=== PATIENT | male | born 1995 | race Two or more races ===

== ENCOUNTER 2017-07-24 00:20 | Emergency (ER) | payer OTHER ==
[~2017-07-24] VITALS: Ht 170.2 cm; Wt 66.0 kg
[2017-07-24] MEDS ORDERED: SELE1SH TOP (00:33)
[2017-07-24] MEDS ORDERED: CLIN150C14 PO (00:33)
[2017-07-24] MEDS ORDERED: FLUC150T PO (00:33)
[2017-07-24] MEDS ORDERED: NYST1POW9 TOP (03:59)
[2017-07-24] MEDS ORDERED: NYSTATIN 100,000 UNITS/GM TOPICAL PWD 15 GM TOP ONE (04:00)
[2017-07-24 04:27] VITALS: BP 139/79
== END 2017-07-24 04:31 | disposition home or self-care (01) ==
LOC: M ED 00:20
DX: L08.9 Local infection of the skin and subcutaneous tissue, unspecified (principal); Z79.2 Long term (current) use of antibiotics; Z79.899 Other long term (current) drug therapy

== ENCOUNTER → 2019-08-28 | Outpatient (CLI) | payer OTHER ==
[~2019-08-28] MED LIST: CLIN150C14 PO; FLUC150T PO; NYST1POW9 TOP; SELE1SH TOP
--- NOTE | 2019-08-28 09:00 | REP ---
CT left knee without contrast: History: Sprain anterior cruciate ligament left knee. Evaluate for preoperative planning, ACL repair. No comparison imaging available. Findings: The patient is status post prior anterior cruciate ligament repair. There appears to be calcification or ossification over a portion of the intraosseous tunnel in the distal femur, and there is a segment of calcification or ossification in the proximal tibial tunnel. The proximal tibial tunnel shows wide radiolucent enlargement. This measures 15 mm in anteroposterior dimension by 17 mm right to left. Within the expanded radiolucent tunnel, there is a calcific or ossific plug 19 mm in length which is apparently a sequestrum. It is completely surrounded by radiolucency. There may be an older ossific tunnel just caudal to this. On sagittal reformatted scans, the tibia is aligned somewhat anterior with respect to the femur, question ACL graft disruption. There is mild tibiofemoral osteoarthritic spurring. There is a small subcortical radiolucency in the medial femoral condyle with slight convexity to the articular cortex overlying it. This suggests chondromalacia. There is a focal indentation of the articular cortex of the lateral femoral condyle as well. There is fragmented spurring at the posterior aspect of the lateral tibial plateau. There is a well corticated 5.5 mm loose body at the posterior joint line medially. There is minimal lateral patellar spurring. Impression: 1. Significant tibial tunnel widening suggestive of tibial tunnel cyst or ganglion. There is a 19 mm apparent calcific or ossific sequestrum within the tibial tunnel. There is some anterior alignment of the tibia relative to the femur suggesting disruption of the graft. 2. Osteoarthritic changes and chondromalacia changes. 3. At least one osteocartilaginous loose body. Fragmented spurring at the posterior aspect of the tibia versus additional loose bodies. Electronically Signed by Reece Nuñez MD 08/28/2019 09:28 A
== END ==
LOC: M RAD 08:05
PROVIDERS: ATTEND Orthopaedic Surgery
DX: M25.762 Osteophyte, left knee (principal); M94.262 Chondromalacia, left knee; M17.12 Unilateral primary osteoarthritis, left knee; S83.512D Sprain of anterior cruciate ligament of left knee, subsequent encounter

== ENCOUNTER 2019-11-12 05:35 | Day surgery (SDC) | payer OTHER ==
[~2019-11-12] VITALS: Ht 170.2 cm; Wt 81.2 kg
[2019-11-12] MEDS ORDERED: LIDOCAINE 1% MDV 20ML VIAL SQ PRN (06:00)
[2019-11-12] MEDS ORDERED: ceFAZolin SOD 2 GM in IV 1 EA IV ONE (07:00)
[2019-11-12] MEDS ORDERED: LR 1,000 ML IV ONE (07:00)
[2019-11-12] MEDS ORDERED: dexameTHASONE 4 MG/ML 1ML VIAL (J1100) As Ordered ONE (07:12)
[2019-11-12] MEDS ORDERED: fentaNYL 100 MCG/2 ML INJECTION (J3010) As Ordered ONE ×3 (07:12→10:31)
[2019-11-12] MEDS ORDERED: LIDOCAINE 2% INJ 100 MG/5 ML SDV (FOR ANES.) As Ordered ONE (07:12)
[2019-11-12] MEDS ORDERED: ONDANSETRON 4MG/2ML VIAL (J2405) As Ordered ONE (07:12)
[2019-11-12] MEDS ORDERED: propofoL 200 MG/20 ML VIAL As Ordered ONE (07:12)
[2019-11-12] MEDS ORDERED: MIDAZOLAM INJ 2 MG/2 ML VIAL (J2250) As Ordered ONE (07:13)
[2019-11-12] MEDS ORDERED: BUPIVACAINE HCL 0.5% 30 ML VIAL As Ordered ONE (07:14)
[2019-11-12] MEDS ORDERED: ACETAMINOPHEN 1000MG 100ML IV BTL (OFIRMEV) (J0131 PER 10MG) As Ordered ONE (08:07)
[2019-11-12] MEDS ORDERED: KETAMINE HCL 200 MG/20 ML VIAL As Ordered ONE (08:07)
[2019-11-12] MEDS ORDERED: KETOROLAC 60 MG/2 ML VIAL (J1885) As Ordered ONE (10:25)
[2019-11-12] MEDS ORDERED: ONDANSETRON 4MG/2ML VIAL (J2405) IV PRN (11:00)
[2019-11-12] MEDS ORDERED: fentaNYL 100 MCG/2 ML INJECTION (J3010) IV PRN (11:00)
[2019-11-12] MEDS ORDERED: LR 1,000 ML IV SCH ×2 (11:00→11:30)
[2019-11-12] MEDS ORDERED: oxyCODONE 5MG TAB PO PRN (11:00)
[2019-11-12 13:30] VITALS: BP 147/73
--- NOTE | 2019-11-13 14:30 | RO ---
DATE OF SURGERY: 11/12/2019 PREOPERATIVE DIAGNOSES: 1. Left knee failed anterior cruciate ligament (ACL) reconstruction times two. 2. Left knee medial meniscus tear. 3. Left knee medial femoral condyle OCD. 4. 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 POSTOPERATIVE DIAGNOSES: 1. Left knee failed anterior cruciate ligament (ACL) reconstruction times two. 2. Left knee medial and lateral meniscus tear. 3. 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 4. 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 PROCEDURE: 1. Left knee arthroscopic osteochondral autograft transfer from lateral femoral condyle to medial femoral condyle. 2. Left knee arthroscopic medial meniscus repair. 3. Left knee arthroscopic chondroplasty and partial lateral meniscectomy. 4. Left knee open tibial tunnel debridement, curettage of hardware and soft tissue and bone with bone grafting using allograft. SURGEON: Dr. Jeromy Moreno ESTHETICIAN: FRED Rudolph ANESTHESIA: General. INTRAVENOUS (IV) FLUIDS: Lactated Ringer's. ESTIMATE BLOOD LOSS: 25 mL. IMPLANTS: Hu [employer]hew Fast-Fix reverse curved 360 times three. Arthrex AlloSync Pure 5 mL allograft putty. CLOSURE: Nylon. PROCEDURE: Patient was identified in preoperative holding area. The left leg was marked by myself. He was brought to the operating room, placed supine on a well-padded operating room (OR) table. General anesthesia induced. He received appropriate IV antibiotics within 1 hour of incision. Exam under anesthesia revealed range of motion from 0-140 degrees, mild laxity to valgus stress to 30 degrees, stable at 0. Grade 2B Janis, positive pivot shift. A well-padded tourniquet was applied to the left thigh. Beanbag taped to the bottom of the bed. Left leg was then prepped and draped in a normal sterile fashion, Chloraprep from the toes up to the tourniquet. Prior to incision, time-out was performed per hospital protocol. Madiha Garner was present for the entire procedure and participated in all essential portions of the procedure. She was present for the prepping and draping. She was crucial for holding the arthroscope during the autograft OATS harvest and transplant. She is also crucial for the medial meniscus repair were she was deploying the Fast-Fix 360 device and holding the arthroscope for that portion of the case. She also held retractors and assisted with curettage and bone graft placement and then the wound closure. The left leg was exsanguinated with an Esmarch bandage and tourniquet inflated to 275 mmHg. The knee was insufflated with lactated Ringer's. Standard anterolateral portal was made with 11 blade, 30-degrees arthroscope was introduced into the joint. Patella and trochlea had grade 1 chondromalacia. No loose bodies in the gutters. The medial compartment was entered, where there was a stage III osteochondral lesion in the central weightbearing portion of the medial femoral condyle. The rest of the medial femoral condyle had grade 1 chondromalacia. Medial meniscus appeared to have a tear in the posterior horn. The ACL, from prior reconstruction, had re-torn with a positive empty notch sign. The leg was brought to the figure of four position, where there was free edge tearing of the lateral meniscus in the body. There was grade 2 chondromalacia in the far lateral portion of lateral femoral condyle. An anteromedial portal was created under direct visualization with a spinal needle used to localize the correct angle for medial meniscus repair and a separate portal being required for the OATS. On probing the medial meniscus, the posterior horn, there was an unstable tear in the peripheral zone. The root was stable. Chondroplasty was then performed to the medial femoral condyle, and then calibrated probe used to determine the dimensions, and then the Arthrex OATS kit used to size this lesion, and it was sized to an 8 mm plug. The leg was brought to the figure of four position where a partial lateral meniscectomy was performed just with the shaver. I removed less than 5% of the lateral meniscus. This was trimmed to stable rim. The remainder of the lateral meniscus was stable on probing. Chondroplasty was performed with the shaver to the lateral femoral condyle. The knee was then brought through range of motion, and appropriate place for an autograft plug was determined just proximal to the sulcus terminalis of the lateral femoral condyle. An 8-mm donor harvester was used to harvest a 15 mm plug. Next, the recipient site trocars were used to remove a 13 mm plug. The harvested plug from the lateral femoral condyle was then placed on the delivery device and then it was inserted into the medial femoral condyle and tamped down with appropriate tamps. This was flush for about 270 degrees and proud about 0.5 mm. It was brought through range of motion. There is no catching. This had excellent fill. I then proceeded the medial meniscus repair. Hu [employer] Nephew Fast-Fix 360 devices, a total of three were used to pass the sutures, primarily in a vertical mattress fashion. The middle of the three was placed in an oblique fashion. Each of these devices had excellent fixation and was well tensioned and then cut with the appropriate cutter, and there was no failure of the devices. On probing of the medial meniscus, the repair was now stable. It was brought through range of motion, 0-120 degrees. There is no re-tearing. Then proceeded with the tibial tunnel curettage. The prior tibial incision was opened with a 15-blade and cautery used to dissect down to the anterior-medial border of the tibia. Once some suture was identified, the tunnel was opened and further developed with a Ashfield elevator. I then used a series a curettes, rongeur, and pituitary rongeur to remove all soft tissue from the tunnel. There was some cloudy fluid in the tunnel which is likely breakdown of a prior BioComposite screw; however, out of abundance caution, I sent off aerobic and anaerobic cultures of that tissue. Curettes were used to clear all soft tissue and then wherever the bone was sclerotic, curettes used to break through that to create a raw metaphysis bleeding surface. A K-wire was then malleted through the tunnel into the joint under direct visualization with the arthroscope. At this point, I had about a 2-3 mm soft tissue cap at the aperture of the tibial tunnel at the joint surface to help contain the bone graft. Anesthesia then sterilely devin 10 mL of blood from peripheral stick and that was placed into a cup on the OR table in a sterile fashion. 5 mL of Arthrex AlloSync Pure was then opened, the putty version, that was mixed with approximately 3 mL of blood on the back table. It was placed into the syringe, and the tunnel was then irrigated and dried. Bone graft was then packed into the tunnel using the delivery device and Ashfield elevator. Next, flaps of periosteum were closed over the tibial tunnel distally to help contain the bone graft, then we irrigated and then closed the incisions with #2-0 Vicryl and a running nylon. Portals closed with nylon. We injected 30 mL 0.5% Marcaine without epinephrine. Tourniquet had been let down with excellent reperfusion. Bulky sterile dressing applied. Patient was placed into a hinged knee brace, locked in extension, extubated, transferred the post anesthesia care unit (PACU) in stable condition.
== END 2019-11-12 13:49 | disposition home or self-care (01) ==
LOC: M SDC 05:35
PROVIDERS: ATTEND Orthopaedic Surgery
DX: M25.362 Other instability, left knee (principal); T84.410A Breakdown (mechanical) of muscle and tendon graft, initial encounter; S83.242A Other tear of medial meniscus, current injury, left knee, initial encounter; S83.282A Other tear of lateral meniscus, current injury, left knee, initial encounter; M93.262 Osteochondritis dissecans, left knee
CPT/HCPCS: 27638; 29868; 29882; 87070; 87075; 87205; C1762; J0131; J0690; J1100; J1885; J2250; J2405; J3010

== ENCOUNTER → 2020-02-26 | Outpatient (CLI) | payer OTHER ==
[~2020-02-26] MED LIST changes: +OXYC1TAB23 PO
== END ==
LOC: M LABSMTC 11:17
PROVIDERS: ATTEND Anesthesiology
DX: Z01.818 Encounter for other preprocedural examination (principal); Z11.59 Encounter for screening for other viral diseases
CPT/HCPCS: C9803; U0003

== ENCOUNTER 2020-02-29 07:11 | Day surgery (SDC) | payer OTHER ==
[~2020-02-29] VITALS: Ht 170.2 cm; Wt 81.2 kg
[~2020-02-29 07:11] MED LIST changes: +BUPIVACAINE HCL 0.5% 10ML VIAL As Ordered ONE; +LR 1,000 ML IV ONE; +MIDAZOLAM INJ 2MG/2ML VIAL (J2250 PER 1MG) As Ordered ONE; -OXYC1TAB23 PO; +fentaNYL 100 MCG/2 ML INJECTION (J3010) As Ordered ONE
[2020-02-29] MEDS ORDERED: propofoL 200 MG/20 ML VIAL As Ordered ONE (07:19)
[2020-02-29] MEDS ORDERED: dexameTHASONE 4 MG/ML 1ML VIAL (J1100 PER 1MG) As Ordered ONE (07:20)
[2020-02-29] MEDS ORDERED: LIDOCAINE 2% 100MG/5ML SDV (FOR ANES.) As Ordered ONE ×3 (07:20→11:11)
[2020-02-29] MEDS ORDERED: ONDANSETRON 4MG/2ML VIAL As Ordered ONE (07:20)
[2020-02-29] MEDS ORDERED: fentaNYL 100 MCG/2 ML INJECTION (J3010) As Ordered ONE ×2 (07:20→12:02)
[2020-02-29] MEDS ORDERED: MIDAZOLAM INJ 2MG/2ML VIAL (J2250 PER 1MG) As Ordered ONE ×2 (07:35→12:04)
[2020-02-29] MEDS ORDERED: ceFAZolin 2 GM/D5W 50 ML IV BAG (J0690 PER 500MG) As Ordered ONE (07:44)
[2020-02-29] MEDS ORDERED: ROCURONIUM BROMIDE 50 MG/5 ML VIAL As Ordered ONE ×2 (07:55→10:27)
[2020-02-29] MEDS ORDERED: ceFAZolin SOD 2 GM in IV 1 EA IV ONE (08:00)
[2020-02-29] MEDS ORDERED: SUGAMMADEX SODIUM 500 MG/5 ML VIAL (BRIDION) As Ordered ONE (09:50)
[2020-02-29] MEDS ORDERED: KETOROLAC 60 MG/2 ML VIAL As Ordered ONE (09:50)
[2020-02-29] MEDS ORDERED: ceFAZolin 1GM VIAL (J0690 PER 500MG) As Ordered ONE (11:52)
[2020-02-29] MEDS ORDERED: HYDROMORPHONE HCL 0.5 MG/ 0.5 ML SYRINGE (J1170 PER 1) IV PRN (12:45)
[2020-02-29] MEDS ORDERED: oxyCODONE 5MG TAB PO PRN (12:45)
[2020-02-29] MEDS ORDERED: fentaNYL 100 MCG/2 ML INJECTION (J3010) IV PRN (12:45)
[2020-02-29] MEDS ORDERED: LR 1,000 ML IV SCH ×2 (12:45)
[2020-02-29] MEDS ORDERED: ONDANSETRON 4MG/2ML VIAL IV PRN (12:45)
[2020-02-29] MEDS ORDERED: PHENYLephrine HCL 500 MCG/5 ML (100MCG/ML) SYRINGE (J2370) As Ordered ONE (13:27)
[2020-02-29] MEDS ORDERED: MIDAZOLAM INJ 2MG/2ML VIAL (J2250 PER 1MG) IV ONE (13:30)
[2020-02-29 16:00] VITALS: BP 135/71
--- NOTE | 2020-03-04 16:29 | RO ---
DATE OF PROCEDURE: 02/29/2020 PREOPERATIVE DIAGNOSES: 1. Recurrent anterior cruciate ligament tear. 2. Status post medial meniscus repair. 3. Left knee tibial tunnel osteolysis. 4. Left knee chondromalacia. POSTOPERATIVE DIAGNOSES: 1. Left knee recurrent anterior cruciate ligament (ACL) tear. 2. Left knee healed medial meniscus repair. 3. Left knee healed osteochondral autograft transfer system (OATS). 4. Left knee chondromalacia. 5. Left knee tibial tunnel osteolysis. PROCEDURE: 1. Left knee arthroscopic assisted xoun-sucnil-blif autograft anterior cruciate ligament reconstruction (revision). 2. Left knee arthroscopic chondroplasty. 3. Left knee tibial tunnel bone grafting with allograft dowel. SURGEON: Jeromy Moreno MD LINUX SERVER ADMINISTRATOR: FRED Nelson ANESTHESIA: General with postoperative nerve block. IV FLUIDS: Lactated Ringer's. ESTIMATED BLOOD LOSS: 50 mL. IMPLANTS: Arthrex 8 x 23 mm PEEK interference screw in the femur, Arthrex 9 x 28 mm PEEK interference screw in the tibia, LifeNet 12 x 29 mm allograft bone dowel in the tibia. CLOSURE: Nylon. Will be requesting a modifier 22 for this procedure. Due to the complex nature of this case, including the fact that it was his fourth knee surgery and this was his third anterior cruciate ligament reconstruction, the procedure took twice as long as normal. This case was further complicated by having converging bone tunnels in the tibia with extensive osteolysis and having a failed bone grafting of the tibial tunnel requiring additional fixation and allograft in order to perform a successful ACL reconstruction. This also required a very skilled assistant art director. Tono assisted with preparing the graft, holding retractors, hyperflexing the knee, assisting with graft passage into the bone tunnels, providing flexion to the knee and performed the wound closure, applied the dressing and brace. The patient was brought to the operating room, placed supine on a well-padded operating room (OR) table. The left leg had been marked. General anesthesia was induced. Exam under anesthesia revealed range of motion from 0 to 135 degrees. Grade 1 laxity to valgus stress at 30 degrees, otherwise stable. Negative posterior drawer. A well-padded tourniquet applied to the left thigh. The left leg was then prepped and draped in the normal sterile fashion from the toes up to the tourniquet. Prior to incision, a time-out was performed per hospital protocol. The left leg was exsanguinated with an Esmarch bandage, the tourniquet inflated to 275 mmHg. The knee was insufflated with lactated Ringer's. Standard anterolateral portal made with #11-blade. 30-degrees arthroscope introduced into the joint. The patient had grade 1 to 2 chondromalacia in the patella, grade 2 in the distal the central trochlea, this blended with some scar tissue at the notch. Medial compartment was entered, the autograft OATS recipient site was inspected and appeared completely healed with no step-off. This looked fantastic. The donor site was filling in nicely with scar tissue. Lateral femoral condyle had grade 2/borderline grade 3 chondromalacia that was unchanged from the prior knee surgery. Some residual ACL tissue was still attached to the femur, so with the medial portal, used the radiofrequency cautery to clear all prior ACL graft and scar tissue. I performed a notchplasty with the bur. We then proceeded with qmdt-mofzgi-efmi graft harvest, midline incision with a #15 blade. Peritenon carefully incised. I then harvested the central one-third of the patellar tendon was bone blocks from the patella and tibia. A thicker bone block than typical was harvested from the tibia and that was to be placed back into the tibial tunnel due to the osteolysis. Graft was prepared on the back table. Two drill holes placed in each bone block, #2 FiberWire passed through each. Patellar tendon was then closed, the knee in 30 degrees of flexion, using buried figure-of-8 #0 Vicryl sutures. Arthroscope was placed into the joint through the lateral portal and then a curette used to jayda the anatomic location for the single bundle ACL reconstruction. 8 mm iock-vzv-yir guide was placed through the anteromedial portal. The knee was hyperflexed, the Beath pin was advanced out the lateral femoral condyle. 10 mm low profile acorn reamer was then used to drill a 25 mm tunnel. This was in an excellent location, 2 mm of posterior wall and just off the articular surface. Shaver was used to remove bony debris from the tunnel. A PDS passing suture was placed through the Beath pin and protected for later passage. The prior tibial incision was then opened and extensive scar tissue had to be removed. The widened tunnel was identified and curettes were used to clear out all of the bone graft, which was Arthrex AlloSync putty, so that was all removed and then curettes were used to scrape out any sclerotic bone. The tibial tunnel from the prior surgeries was 16 mm in diameter on CT scan and it was extremely anterior. During the whole tibial portion of the procedure, there was a risk for tibial fracture, which added significant complexity to the case. I elected to drill a new tibial tunnel. The drill guide was used, and the guidewire entered the joint just medial to the midline and about 9 mm posterior to the intrameniscal ligament. First an 8, then a 10 mm barrel scraper were used to create the tibial tunnel. Passing suture was brought out the tibial tunnel. The graft was then passed into the joint, bone block was docked into the femoral tunnel. There was no notch impingement. Nitinol wire was placed. I then used a 7 mm tap and a 7 x 23 mm screw was placed over the guidewire. The screw bottomed out fpc, and the wire and screw were removed and the guidewire had bent. So, the steps were repeated. Ultimately the 7 mm screw had poor bite, so I then used an 8 x 23 mm PEEK screw in the femur and got excellent fixation. The tourniquet was let down with excellent reperfusion. All incisions irrigated. It was now clear that my a new tibial tunnel converged with the old osteolytic tunnel, and there be very poor fixation. I was prepared for this, so the 12 mm LifeNet bone dowel was opened, it was slightly trimmed down with a rongeur, and this was impacted into the osteolytic tibial tunnel with excellent fill and fixation. Next, the Nitinol wire was passed and a 7 mm tap was used. I then placed a 9 x 28 mm PEEK interference screw, placing the screw posterior to the bone block. There was no graft tunnel mismatch. That screw had amazing fixation. I was applying distal traction to the sutures and my assistant art director was applying a posterior drawer to the tibial tubercle. The patient now had a grade 1A Janis. The knee was ranged from 0 to 120 degrees, the Janis was repeated; there was no loosening. Initially I had planned to provide back up tibial fixation; however, with the bone dowel and the 9 mm screw and using autograft, the fixation was so secure, I elected to hold off on backup fixation. The arthroscope was placed into the joint, and the medial meniscus was probed one last time and the repair from the last surgery was found to be intact. The graft was probed, found be under good tension. The knee was irrigated and drained. Incisions were closed with #2-0 Vicryl running nylon. The patellar harvest site was bone grafted. We injected 10 mL of 0.5% Marcaine without epinephrine. At the time of the dictation, the brace is being placed, and he will receive a postoperative adductor block. He will have his antibiotics redosed at the 4- hour jayda. edited: 03/05/2020 1130 tkf MTDD
== END 2020-02-29 16:20 | disposition home or self-care (01) ==
LOC: M SDC 07:11
PROVIDERS: ATTEND Orthopaedic Surgery
DX: S83.512A Sprain of anterior cruciate ligament of left knee, initial encounter (principal); X58.XXXA Exposure to other specified factors, initial encounter; Y92.89 Other specified places as the place of occurrence of the external cause; Y93.9 Activity, unspecified; Y99.9 Unspecified external cause status; Z88.5 Allergy status to narcotic agent; Z88.8 Allergy status to other drugs, medicaments and biological substances
CPT/HCPCS: 29888; 64447; C1713; C1762; J0690; J1100; J1885; J2250; J2370; J2405; J3010

== ENCOUNTER 2020-03-04 14:06 | Emergency (ER) | payer OTHER ==
[~2020-03-04] VITALS: Ht 170.2 cm; Wt 80.2 kg
[~2020-03-04 14:06] MED LIST changes: -BUPIVACAINE HCL 0.5% 10ML VIAL As Ordered ONE; -LR 1,000 ML IV ONE; -MIDAZOLAM INJ 2MG/2ML VIAL (J2250 PER 1MG) As Ordered ONE; -fentaNYL 100 MCG/2 ML INJECTION (J3010) As Ordered ONE
[2020-03-04] MEDS ORDERED: OXYC1TAB23 PO (14:16)
[2020-03-04] MEDS ORDERED: ISOVUE-370 76% 100ML VIAL As Ordered ONE (14:50)
[2020-03-04 15:28] VITALS: BP 138/69
--- NOTE | 2020-03-04 15:45 | REP ---
CT ANGIOGRAM OF THE CHEST: TECHNIQUE: Axial contrast-enhanced images from the thoracic inlet to the upper abdomen using 100 mL Isovue-370 intravenous contrast material with multiplanar reformations. There is no CT evidence of pulmonary embolism. There is no thoracic aortic aneurysm or dissection. The heart is not enlarged. There is no mediastinal, hilar, or chest wall lymphadenopathy. There is no pleural or pericardial effusion. There is no acute infiltrate in either lung. The visualized upper abdominal structure are unremarkable. IMPRESSION: No CT evidence of pulmonary embolism or acute pulmonary disease. Electronically Signed by Andi Durham MD 03/04/2020 04:56 P
== END 2020-03-04 15:32 | disposition home or self-care (01) ==
LOC: M ED 14:06
DX: R79.1 Abnormal coagulation profile (principal); Z98.890 Other specified postprocedural states; Z88.8 Allergy status to other drugs, medicaments and biological substances
CPT/HCPCS: 71275; 99284; Q9967